=== PATIENT | male | born 1970 | race Caucasian/White ===

== ENCOUNTER 2019-02-01 15:45 | Emergency (ER) | payer SELFPAY ==
--- NOTE | 2019-02-01 16:03 | UC ---
HPI BURN - HPI Summary HPI Summary: 49 yo male presents with right elbow pain for the last month or so. He tells me that for about a year he has worked at [employer] and does a lot of lifting and repetitive motions. His right elbow pain has become so uncomfortable that he drops silverware and pans and occasionally kamara his right arm/hand. He has been taking tylenol for this discomfort with mild relief. He also endorses some numbness that radiates to his right thumb and index finger and is intermittent. Denies specific injury. He is right handed. - History of Current Complaint Stated Complaint: BURN ON HAND Time Seen by Provider: 02/01/19 16:03 Hx Obtained From: Patient Onset Severity: Moderate Current Severity: Moderate Pain Intensity: 6 Pain Scale Used: 0-10 Numeric - Allergy/Home Medications Allergies/Adverse Reactions: Allergies Allergy/AdvReac Type Severity Reaction Status Date / Time No Known Allergies Allergy Verified 02/01/19 16:07 Home Medications: Home Medications Acetaminophen TAB* [Tylenol TAB*] 4 tab PO QID 02/01/19 [History Confirmed 02/01] PMH/Surg Hx/FS Hx/Imm Hx - Additional Past Medical History Additional PMH: None - Family History Known Family History: Positive: Unknown - Social History Occupation: Employed Full-time Lives: With Family Alcohol Use: Occasionally Substance Use Type: None Smoking Status (MU): Current Every Day Smoker Review of Systems All Other Systems Reviewed And Are Negative: Yes Constitutional: Positive: Negative Skin: Positive: Other - Kamara right arm Respiratory: Positive: Negative Cardiovascular: Positive: Negative Neurovascular: Positive: Negative Musculoskeletal: Positive: Other: - Right elbow pain Neurological: Positive: Negative Psychological: Positive: Negative Physical Exam - Summary Physical Exam Summary: GENERAL: NAD. WDWN. No pain distress. SKIN: Scattered superficial kamara measuring 5mm to 2.0cm on right forearm and hand. No erythema, warmth, or drainage. CHEST: No accessory muscle use. Breathing comfortably and in no distress. CV: Pulses intact radial and ulnar. Cap refill <2seconds MSK: RIGHT ELBOW: TTP at lateral epicondyle with mild edema. Palpation here radiates pain down forearm along radius. FROM without pain. POSITIVE chair lift test. Pain reproduced with middle finger extension against resistance. 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 NEURO: Alert. Sensations intact hand and all fingers. PSYCH: Age appropriate behavior. Triage Information Reviewed: Yes Vital Signs: Vital Signs: Temp Pulse Resp BP Pulse Ox 98 F 92 17 167/88 98 02/01/19 16:02 02/01/19 16:02 02/01/19 16:02 02/01/19 16:02 02/01/19 16:02 Vital Signs Reviewed: Yes Burn Calculation - [place] Formula for Fluid Resuscitation 24 -Hour Fluid Replacement: 0.0 Course/Dx Burn - Course Course Of Treatment: Suspect lateral epicondylitis of right elbow. Will have him try naproxen and start him with physical therapy and refer to Orthopedics for further eval. Regarding his skin kamara, will rx for bactroban to cover for infection or if he gets kamara in the future. - Diagnoses Provider Diagnosis: Right lateral epicondylitis, Superficial burn of right forearm Discharge - Sign-Out/Discharge Documenting (check all that apply): Patient Departure All imaging exams completed and their final reports reviewed: No Studies - Discharge Plan Condition: Stable Disposition: HOME Prescriptions: Mupirocin 2% CREAM* [Bactroban 2% CREAM*] 1 applic TOPICAL BID #1 tube Naproxen [Naproxen 500 mg tab] 500 mg PO BID PRN #30 tablet PRN Reason: Pain Patient Education Materials: Tennis Elbow (ED) Referrals: No Primary Care Phys,NOPCP [Primary Care Provider] - Oc Goss MD [Medical Doctor] - As Soon As Possible Additional Instructions: If you develop a fever, shortness of breath, chest pain, new or worsening symptoms - please call your PCP or go to the ED. Your blood pressure was high at todays visit. Please see your primary provider within 4 weeks for recheck and re-evaluation. 1) Use the cream on your burn/cut wounds 2) Please call Orthopedics at the number below to schedule an appointment for further evaluation 3) Please call Physical Therapy to schedule an appointment for further treatment - Billing Disposition and Condition Condition: STABLE Disposition: Home - Attestation Statements Provider Attestation: Pt not examined by me. I was available for consult.
[2019-02-01 16:07] VITALS: BP 167/88
== END 2019-02-01 16:27 | disposition home or self-care (01) ==
LOC: UCEAST 15:45
DX: M77.11 Lateral epicondylitis, right elbow (principal); T22.111A Burn of first degree of right forearm, initial encounter; T31.0 Burns involving less than 10% of body surface; X19.XXXA Contact with other heat and hot substances, initial encounter; Y92.9 Unspecified place or not applicable; Y99.0 Civilian activity done for income or pay; F17.200 Nicotine dependence, unspecified, uncomplicated
CPT/HCPCS: 99202; G0463

== ENCOUNTER 2019-02-19 14:26 | Emergency (ER) | payer SELFPAY ==
[2019-02-19 14:36] VITALS: BP 179/96
--- NOTE | 2019-02-19 14:49 | UC ---
Throat Pain/Nasal [place] HPI - HPI Summary HPI Summary: 49 yo male presents with hemoptysis. He tells me that 2 days ago he was at work and was hurrying to eat during work hours. He was drinking coffee and eating a flatbread pizza when he states "something went down the wrong pipe". He felt that he was choking, but was able to cough and get his breath. [place] fine the rest of the night. Yesterday morning he woke up and coughed up clear sputum with bright red blood tinged within it. He continued to cough throughout the day yesterday and would have blood tinged clear sputum. States he has some sharp pain in his central/upper chest when coughing. His symptoms have continued into today. He feels well otherwise and denies fever, sore throat, SOB , palpitations, n/v. He is eating and drinking well and tolerating po without issue. - History of Current Complaint Chief Complaint: UCRespiratory Stated Complaint: PAIN IN THROAT, CHEST CONGESTION Hx Obtained From: Patient Onset/Duration: Sudden Onset Severity: Mild Pain Intensity: 2 Pain Scale Used: 0-10 Numeric - Allergies/Home Medications Allergies/Adverse Reactions: Allergies Allergy/AdvReac Type Severity Reaction Status Date / Time No Known Allergies Allergy Verified 02/19/19 14:35 Home Medications: Home Medications Aspirin 81 mg PO DAILY 02/19/19 [History Confirmed 02/19/19] Atenolol 5 mg PO DAILY 02/19/19 [History Confirmed 02/19/19] Lisinopril 40 mg PO DAILY 02/19/19 [History Confirmed 02/19/19] PMH/Surg Hx/FS Hx/Imm Hx Cardiovascular History: Hypertension Respiratory History: COPD - Surgical History Surgical History: None - Family History Known Family History: Positive: Unknown - Social History Occupation: Employed Full-time Lives: With Family Alcohol Use: Occasionally Substance Use Type: None Smoking Status (MU): Current Every Day Smoker Amount Used/How Often: 1/2ppd Household Exposure Type: Cigarettes Review of Systems All Other Systems Reviewed And Are Negative: Yes Constitutional: Positive: Negative Skin: Positive: Negative Eyes: Positive: Negative ENT: Positive: Negative Respiratory: Positive: Cough Cardiovascular: Positive: Negative Gastrointestinal: Positive: Negative Neurological: Positive: Negative Psychological: Positive: Negative Physical Exam - Summary Physical Exam Summary: GENERAL: NAD. WDWN. No pain distress. SKIN: No rashes, sores, lesions, or open wounds. HEENT: Head: AT/NC Eyes: Conjunctiva clear without inflammation or discharge. Ears: Hearing grossly normal. TMs intact, no bulging, erythema, or edema. Nose: Nasal mucosa pink and moist. NTTP maxillary and frontal sinus. Throat: Posterior oropharynx without exudates, erythema, or tonsillar enlargement. Uvula midline. NECK: Supple. Nontender. No lymphadenopathy. CHEST: LEFT LUNG with coarse breath sounds throughout. RIGHT lung no r/r/w. No accessory muscle use. Breathing comfortably and in no distress. CV: RRR. Without m/r/g. Pulses intact. Cap refill <2seconds NEURO: Alert. PSYCH: Age appropriate behavior. Triage Information Reviewed: Yes Vital Signs: Initial Vital Signs Temp 99.3 F 02/19/19 14:29 Pulse 107 02/19/19 14:29 Resp 18 02/19/19 14:29 BP 179/96 02/19/19 14:29 Pulse Ox 98 02/19/19 14:29 Vital Signs Reviewed: Yes Throat Pain/Nasal Course/Dx - Course Course Of Treatment: XR soft tissue neck: IMPRESSION: 1. NO EVIDENCE FOR ACUTE FINDING. 2. MODERATE DEGENERATIVE DISC DISEASE. CXR: IMPRESSION: FINDINGS CONSISTENT WITH COPD, NO EVIDENCE FOR ACUTE DISEASE. His history is suspicious for aspiration pneumonia/pneumonitis. He is afebrile and has no difficulty breathing or SOB yesterday or currently - therefore I will start him with Augmentin to cover for bacterial infection and have him f/u with Pulmonology early next week. We discussed, at length, that if his symptoms worsen or if he develops a fever, SOB, chest pain, or increased amounts of blood in his sputum to go to the ED immediately or call 911. He voiced understanding and is in agreement with the plan. - Differential Dx/Diagnosis Provider Diagnosis: Hemoptysis Discharge - Sign-Out/Discharge Documenting (check all that apply): Patient Departure All imaging exams completed and their final reports reviewed: Yes - Discharge Plan Condition: Stable Disposition: HOME Prescriptions: Amoxicillin/Clavulanate TAB* [Augmentin TAB 875*] 875 mg PO BID #14 tab Patient Education Materials: Aspiration Pneumonia (DC), Hemoptysis (ED) Forms: *Work Release Referrals: No Primary Care Phys,NOPCP [Primary Care Provider] - Maggy Cosme MD [Medical Doctor] - 2 Days Additional Instructions: Your blood pressure was high at todays visit. Please see your primary provider within 4 weeks for recheck and re-evaluation. 1) If you develop shortness of breath, fever, chest pain, or larger amounts of blood in your sputum - please call 911 or go directly to the ER 2) Please call Pulmonology at the number below to schedule an appointment for early next week for a recheck of your symptoms 3) Take your antibiotic as directed - Billing Disposition and Condition Condition: STABLE Disposition: Home
== END 2019-02-19 15:44 | disposition home or self-care (01) ==
LOC: UCEAST 14:26
DX: R04.2 Hemoptysis (principal); R07.0 Pain in throat; R09.89 Other specified symptoms and signs involving the circulatory and respiratory systems; M50.323 Other cervical disc degeneration at C6-C7 level; I10 Essential (primary) hypertension; J44.9 Chronic obstructive pulmonary disease, unspecified; Z79.82 Long term (current) use of aspirin; F17.200 Nicotine dependence, unspecified, uncomplicated
CPT/HCPCS: 70360; 71046; 99212; G0463